=== PATIENT | female | born 1940 | race Caucasian/White ===

== ENCOUNTER 2017-08-01 23:18 | Emergency (ER) | payer MEDICARE, OTHER ==
[2017-08-01] MEDS ORDERED: hydrALAZINE 20 MG/ML VIAL ONE (23:30)
--- NOTE | 2017-09-17 12:41 | EKG ---
Test Reason : HYPERTENSION Blood Pressure : / mmHG Vent. Rate : 052 BPM Atrial Rate : 052 BPM P-R Int : 168 ms QRS Dur : 068 ms QT Int : 426 ms P-R-T Axes : 058 045 053 degrees QTc Int : 396 ms Sinus bradycardia Nonspecific T wave abnormality Nospecific ST-T segment abnormalities Abnormal ECG Confirmed by OSMAR HARRIS ([id number]), electronic news gathering editor MARÍA ELENA PONCE ([id number]) on 09/17/2017 12:41:08 PM Referred By: ASHLEY HARRIS Confirmed By:OSMAR HARRIS
== END 2017-08-02 02:25 | disposition home or self-care (01) ==
LOC: ERS 23:18
DX: I11.0 Hypertensive heart disease with heart failure (principal); I50.9 Heart failure, unspecified; E78.5 Hyperlipidemia, unspecified; E03.9 Hypothyroidism, unspecified
CPT/HCPCS: 93005; 96374; J0360

== ENCOUNTER 2018-03-04 12:48 | Inpatient (IN) | payer MEDICARE, OTHER ==
[2018-03-04] MEDS ORDERED: Atropine Sulfate 1 mg/10 ml Syringe ONE (13:18)
[2018-03-04 13:28] LABS: #Lymphocytes 1.2 thou/uL (1.20-3.40); #Monocytes 0.1 thou/uL (0.11-0.59); #Neutrophils 2.8 thou/uL (1.40-6.50); %Basophils 0.2 % (0.0-1.0); %Eosinophils 0.6 % (0.0-10.0); %Lymphocytes 28.4 % (21.0-51.0); %Monocytes 3.4 % (0.0-10.0); %Neutrophils 67.5 % (42.0-75.0); Mean Corpuscular Volume 93.7 fl (81.0-99.0); Mean Platelet Volume 7.9 fL (7.4-10.4); Platelet Count 128 thou/uL (130-400); RBC Distribution Width 14.6 % (11.5-14.5); Red Blood Cell (RBC) Count 3.33 mill/uL (4.20-5.40); White Blood Cell (WBC) Count 4.2 thou/uL (4.8-10.8)
[2018-03-04 13:33] LABS: INR-International Normal Ratio 1.5; PTT 29.9 SEC (22.9-36.1); Prothrombin Time 18.1 SEC (12.0-14.7)
[2018-03-04 13:46] LABS: ALT (SGPT) 8 U/L (8-55); AST (SGOT) 17 U/L (5-34); Albumin 3.1 g/dL (3.4-4.8); Alkaline Phosphatase 54 U/L (40-150); Anion Gap 15 mmol/L (10-20); BUN (Urea Nitrogen) 11 mg/dL (9.8-20.1); Bilirubin, Total Less than 0.2 mg/dL (0.2-1.2); Calc. Creatinine Clearance 0 mL/min (70-130); Calcium 7.6 mg/dL (7.8-10.44); Carbon Dioxide 18 mmol/L (23-31); Chloride 113 mmol/L (98-107); Estimated GFR-MDRD 49; Globulin 2.2 g/dL (2.4-3.5); Glucose 95 mg/dL (83-110); Potassium 3.8 mmol/L (3.5-5.1); Protein, Total 5.3 g/dL (6.0-8.3); Sodium 142 mmol/L (136-145)
[2018-03-04 13:51] LABS: Troponin I 0.013 ng/mL (< 0.028)
--- NOTE | 2018-03-04 14:20 | RAD ---
CHEST 1 VIEW: Date: 03/04/18 HISTORY: Syncopal episode. COMPARISON: 08/01/17. FINDINGS: Heart size is within normal limits. Postop sternotomy changes are seen. The lungs are clear of infilt rate. IMPRESSION: No active intrathoracic disease. POS: [facility]
[2018-03-04] MEDS ORDERED: Ondansetron HCl/PF 4 MG/2 ML Vial IVP PRN (17:10)
[2018-03-04] MEDS ORDERED: Ondansetron ODT 4 MG TAB PO PRN (17:10)
[2018-03-04] MEDS ORDERED: Acetaminophen 650 MG Suppository PR PRN (17:10)
[2018-03-04] MEDS ORDERED: Acetaminophen 500 MG TAB PO PRN (17:10)
[2018-03-04] MEDS ORDERED: Lorazepam 2 MG/ML VIAL SLOW IVP SCH (17:15)
--- NOTE | 2018-03-04 18:09 | HP ---
DATE OF ADMISSION: 03/04/2018 PRIMARY CARE PHYSICIAN: Dr. Keo Alston. CHIEF COMPLAINT: Altered mental status and fall. HISTORY OF PRESENT ILLNESS: This is a 77-year-old female who presents to [facility] Emergency Department accompanied by her son and [id number] after the patient wa s apparently discovered in her home on the floor. The patient was apparently discovered by her son elisha oscar next door, son after checking on his mother. Patient apparently was on the floor for an und isclosed amount of time at which point EMS personnel were called for assistance. The patient was rep ortedly with hypotension by EMS personnel with initial blood pressure 70/35. The patient was adminis tered 2 liters of normal saline and was also noted bradycardic with heart rates in the 40s. The son reports patient has had several falls in the past and has a rolling walker, which she intermittently uses. The son also reports questionable noncompliance with her chronic medication regimen and is uns ure if she is taking her medications in the correct doses and intervals. The son also reports some d iscord with his daughter who apparently lives with the patient and was recently removed from the home per the son's report. The son reports patient has never acted to this degree of confusion and comba tiveness. No specific history was reported of recent illness, sick contacts, exposure, travel histor y or a witnessed fall. The family had reported some twitching-like activity in the face and extremit ies after they checked on her at her home. In the emergency room, patient underwent general evaluati on with noted vital signs showing bradycardia and hypotension. The patient received 2 mg of atropine IV push with some improvement in overall heart rate to the 60s. Patient's blood pressure increased into the 90s and low 100s. The patient was noted afebrile and transferred to the observation unit. After transferred to the observation unit, patient became increasingly combative, confused, hallucina ting and oriented only to her name. PAST MEDICAL HISTORY: 1. Coronary artery disease. 2. Hypertension. 3. History of falls. 4. Macular degeneration. 5. History of left-sided breast cancer. 6. Hypothyroidism. 7. Hyperlipidemia. PAST SURGICAL HISTORY: 1. Status post left breast tumor resection. 2. Status post appendectomy. 3. Status post hysterectomy. 4. Status post coronary artery bypass grafting x3 vessels in 1997. CURRENT MEDICATIONS: Accurate list is being obtained and previously noted, 1. Crestor 10 mg daily. 2. Levothyroxine 125 mcg daily. 3. Cardura 2 mg p.o. daily. 4. Adalat 30 mg p.o. b.i.d. 5. Atorvastatin 20 mg p.o. daily. 6. Lasix 40 mg daily. 7. Lisinopril 40 mg p.o. daily. 8. Metoprolol tartrate 25 mg p.o. b.i.d. 9. Celexa 20 mg p.o. daily. ALLERGIES: PENICILLIN. FAMILY HISTORY: Positive for hypertension in maternal grandmother and grandfather. SOCIAL HISTORY: Patient is previously residing with her granddaughter in the [facility]. No curr ent alcohol, tobacco or illicit drug use. Remote tobacco and alcohol use, none currently. Ambulates with and without a rolling walker. History of falls. since 2005. REVIEW OF SYSTEMS: The following complete review of systems was negative, unless otherwise mentioned in the HPI or below: Constitutional: Weight loss or gain, ability to conduct usual activities. Skin: Rash, itching. Eyes: Double vision, pain. ENT/Mouth: Nose bleeding, neck stiffness, pain, tenderness. Cardiovascular: Palpitations, dyspnea on exertion, orthopnea. Respiratory: Shortness of breath, wheezing, cough, hemoptysis, fever or night sweats. Gastrointestinal: Poor appetite, abdominal pain, heartburn, nausea, vomiting, constipation, or diarr hea. Genitourinary: Urgency, frequency, dysuria, nocturia. Musculoskeletal: Pain, swelling. Neurologic/Psychiatric: Anxiety, depression. Allergy/Immunologic: Skin rash, bleeding tendency. Otherwise unable to determine due to patient's altered mentation. PHYSICAL EXAMINATION: VITAL SIGNS: On admission in the emergency room showed blood pressure 84/72, pulse 48, respiratory r ate 18, temperature 97.6 degrees Fahrenheit, and O2 saturation 94% on room air. GENERAL APPEARANCE: Alert and oriented to name. Confused, mumbling words with active hallucinations . HEENT: Pupils are equal. Positive nystagmus. Nares patent. OP is clear. Oral mucosa dry appearin g. NECK: Supple, no JVD noted. CHEST: Lungs are clear to auscultation bilaterally. CARDIOVASCULAR: S1 and S2 without noted murmur, rub or gallop. Heart sounds are distant. ABDOMEN: Obese, soft, no palpable mass. No rebound or guarding. EXTREMITIES: No clubbing, cyanosis or asymmetric edema appreciated. NEUROLOGIC: Alert and oriented time x1 to person. Positive hallucinations. Randomly moving extremi ties. Not observed ambulatory. Positive nystagmus. PERTINENT LABORATORY DATA AND IMAGING DATA: Sodium 142, potassium 3.8, chloride 113, CO2 of 18, BUN 11, creatinine 1.09, estimated GFR 49, glucose 95. LFTs within normal limits. Troponin I negative x 1. BNP 30. CBC showed white blood cell count 4.2, hemoglobin 10, hematocrit 31, platelet count 128 with 68% neutrophils. PT 18.1, INR 0.5, PTT 29.9. Portable chest x-ray dated 03/04/2018 showed no a cute cardiopulmonary process. EKG dated 03/04/2018 by my interpretation shows sinus bradycardia, hea rt rates in the 40s. Attenuated R waves in the precordial leads. Normal axis. No acute ST-T wave c hanges noted. ASSESSMENT AND PLAN: 1. Acute metabolic encephalopathy. The patient will be admitted to the telemetry unit. Exact etiol ogy unclear, currently. We will obtain CT of the brain without contrast to rule out acute cerebrovas cular accident. Check TSH, magnesium, and ammonia level. Check prolactin level. Continue intraveno us normal saline at 100 mL per hour. Serial neurologic assessment. Concern for atropine affect as p atient received 2 mg in the emergency room. 2. Sinus bradycardia. Suspect iatrogenic. Hold AV taniya blocking agents as well as beta blockers a nd calcium channel blockers. Continue telemetry monitoring. Check 2D transthoracic echocardiogram f or ejection fraction and wall motion abnormality. Check magnesium and TSH level. 3. Hypotension. Suspect secondarily to iatrogenic influence in conjunction with dehydration. We wi ll continue intravenous normal saline at 100 mL per hour. Avoid all antihypertensive medications. S erial blood pressure monitoring. 4. Status post fall. Obtain PT evaluation for functional assessment. The patient may benefit from home health with physical therapy. General fall precautions. 5. Normocytic anemia. Continue serial CBC. No current evidence to suggest acute blood loss. 6. Prophylaxis. Sequential compression devices while in bed. Pepcid 20 mg IV q.12 hours. PT evalu ation for functional assessment. General fall risk precautions. 7. Code status is FULL. Surrogate medical decision maker is patient's son.
[2018-03-04] MEDS: Sodium Chloride 0.9% 1,000 ML IV SCH (18:23)
[2018-03-04] MEDS ORDERED: Aspirin 300 MG Suppository PR SCH (18:45)
--- NOTE | 2018-03-04 19:59 | CT ---
HEAD CT WITHOUT CONTRAST: 03/04/18 COMPARISON: 08/01/17 HISTORY: Altered mental status, fall. TECHNIQUE: Serial axial CT imaging a t 5 mm intervals from vertex through skull base without contrast. FINDINGS: Imaged paranasal sinuses/mastoid air cells well aerated. No displaced calvarial fracture. There is mild diffuse cerebral volume loss. There is periventricular hypodensity. No intracranial hem orrhage, midline shift or mass effect. IMPRESSION: Evidence of small vessel disease. No evidence for intracranial hemorrhage or displaced calvarial frac ture. POS: [facility]
[2018-03-04] MEDS: Famotidine/PF 20 mg/2ml Vial SLOW IVP SCH (22:49)
[2018-03-05] MEDS ORDERED: Ziprasidone 20 MG VIAL IM SCH ×3 (01:00→18:00)
[2018-03-05] MEDS ORDERED: Sterile Water 10 ML VIAL FS SCH ×2 (01:00→04:00)
[2018-03-05 05:26] LABS: Band 5 % (5-11); Eosinophils 1 % (0-10); Hemoglobin 10.4 g/dL (12.0-16.0); Lymphocytes 39 % (21-51); MDiff Complete? YES; Mean Corpuscular HGB CONC 33.2 g/dL (32.0-36.0); Mean Corpuscular Hemoglobin 30.1 pg (27.0-31.0); Mean Corpuscular Volume 90.6 fl (81.0-99.0); Mean Platelet Volume 7.7 fL (7.4-10.4); Monocytes 4 % (0-10); Neutrophil 51 % (42-75); PLT Morphology Comment Appears Adequate; Platelet Count 146 thou/uL (130-400); RBC Distribution Width 14.4 % (11.5-14.5); Red Blood Cell (RBC) Count 3.46 mill/uL (4.20-5.40); White Blood Cell (WBC) Count 4.3 thou/uL (4.8-10.8)
[2018-03-05 06:00] LABS: ALT (SGPT) 8 U/L (8-55); AST (SGOT) 18 U/L (5-34); Albumin 3.3 g/dL (3.4-4.8); Alkaline Phosphatase 53 U/L (40-150); Anion Gap 14 mmol/L (10-20); BUN (Urea Nitrogen) 11 mg/dL (9.8-20.1); Bilirubin, Total 0.2 mg/dL (0.2-1.2); Calc. Creatinine Clearance 56 mL/min (70-130); Calcium 8.4 mg/dL (7.8-10.44); Carbon Dioxide 20 mmol/L (23-31); Chloride 112 mmol/L (98-107); Estimated GFR-MDRD 59; Globulin 2.2 g/dL (2.4-3.5); Glucose 72 mg/dL (83-110); Potassium 3.6 mmol/L (3.5-5.1); Protein, Total 5.5 g/dL (6.0-8.3); Sodium 142 mmol/L (136-145)
[2018-03-05] MEDS: Sodium Chloride 0.9% 1,000 ML IV SCH (07:24)
[2018-03-05] MEDS ORDERED: Prevnar 13-Val Conj/PF 0.5 ML SYRINGE IM ONE (09:00)
[2018-03-05] MEDS ORDERED: Dextrose 5% in Water 1,000 ML IV PRN (09:25)
[2018-03-05] MEDS ORDERED: Dextrose 50% Abboject 50 ML SYRINGE SLOW IVP PRN (09:25)
--- NOTE | 2018-03-05 09:25 | PDOC.PN ---
- Subjective Encounter Start Date: 03/05/18 Encounter Start Time: 10:15 Subjective: pt up in bed very confused. family at bedside - Objective Resuscitation Status: Resuscitation Status FULL:Full Resuscitation Vital Signs & Weight: Vital Signs (12 hours) Pulse Resp BP Pulse Ox 03/05/18 07:53 48 L 19 128/60 92 L I&O: 03/04/18 03/05/18 03/06/18 06:59 06:59 06:59 Intake Total 0 Balance 0 Result Diagrams: 03/05/18 04:54 03/05/18 04:54 Phys Exam - Physical Examination HEENT: PERRLA, moist MMs, sclera anicteric, TM's clear, oral pharynx no lesions , 2+ tonsils Neck: no nodes, no JVD, supple, full ROM Respiratory: no wheezing, no rales, no rhonchi, wheezing present, clear to auscultation bilateral Cardiovascular: RRR, no significant murmur, no rub, gallop, irregular Neurological: moves all 4 limbs pt very confused, follows commands Deviation from normal: very aggressive Skin: no rash, normal turgor, cap refill <2 seconds Dx/Plan (1) Acute metabolic encephalopathy Code(s): G93.41 - METABOLIC ENCEPHALOPATHY Status: Acute (2) Aggressive behavior Code(s): R46.89 - OTHER SYMPTOMS AND SIGNS INVOLVING APPEARANCE AND BEHAVIOR Status: Acute (3) Acquired hypothyroidism Code(s): E03.9 - HYPOTHYROIDISM, UNSPECIFIED Status: Acute - Plan * . Family at bedside states that pt was fine on sat but had a very stressful event on Tuesday and was very hysterically crying. pt has no hx of psy. ct head negative. no fever or neck pain. TSH was high most likely pt is not taking her meds. This could cause bradycardia. echo ordered. According to pt's family she has not slept much for the past 2 days. UA and cxr negative. Will get MHR and get neuro to see pt. I feel this is a underlying psy issue. She follows commands but has a very strange behaviour. will also get eeg. Review of Systems - Review of Systems Other: unable to do. pt not cooperative - Medications/Allergies Allergies/Adverse Reactions: Allergies Allergy/AdvReac Type Severity Reaction Status Date / Time Penicillins Allergy Severe Hives Verified 03/04/18 17:39 Medications: Current Medications Acetaminophen (Tylenol) 650 mg [place] Q4H PRN PRN Reason: Headache/Fever or Mild Pain Acetaminophen (Tylenol) 1,000 mg PO Q6H PRN PRN Reason: Headache/Fever or Mild Pain Aspirin (Aspirin) 300 mg NV DAILY [facility] Last Admin: 03/05/18 10:06 Dose: Not Given Atorvastatin Calcium (Lipitor) 20 mg PO DAILY [facility] Dextrose/Water (Dextrose 50%) 25 gm SLOW IVP PRN PRN PRN Reason: Hypoglycemia Famotidine (Pepcid) 20 mg SLOW IVP Q12HR [facility] Last Admin: 03/05/18 10:06 Dose: Not Given Glucagon (Glucagon) 1 mg IM PRN PRN PRN Reason: Hypoglycemia Dextrose/Water (D5w) 1,000 mls @ 0 mls/hr IV .Q0M PRN; As Directed PRN Reason: Hypoglycemia Dextrose/Sodium Chloride (D5 0.9% Ns) 1,000 mls @ 75 mls/hr IV .[id number] [facility] Last Admin: 03/05/18 09:59 Dose: 1,000 mls Levothyroxine Sodium (Synthroid) 125 mcg PO 0600 [facility] Ondansetron HCl (Zofran Odt) 4 mg PO Q6H PRN PRN Reason: Nausea/Vomiting Ondansetron HCl (Zofran) 4 mg IVP Q6H PRN PRN Reason: Nausea/Vomiting Sodium Chloride (Flush - Normal Saline) 10 ml IVF Q12HR [facility] Last Admin: 03/05/18 10:00 Dose: 10 ml Sodium Chloride (Flush - Normal Saline) 10 ml IVF PRN PRN PRN Reason: Saline Flush Ziprasidone (Geodon) 5 mg IM Q6H PRN PRN Reason: Agitation Stop: 03/06/18 07:00
[2018-03-05] MEDS: Dextrose 5 % And 0.9 % NaCl 1,000 ML IV SCH ×2 (09:59→21:03)
[2018-03-05] MEDS: Famotidine/PF 20 mg/2ml Vial SLOW IVP SCH ×2 (10:06→21:04)
[2018-03-05] MEDS: Aspirin 300 MG Suppository PR SCH (10:06)
[2018-03-05] MEDS ORDERED: Haloperidol Lactate 5 MG/ML VIAL IM SCH (11:15)
[2018-03-05 12:31] LABS: CKMB 1.9 ng/mL (0-6.6); Troponin I Less than 0.010 ng/mL (< 0.028)
[2018-03-05 13:10] LABS: Bilirubin Negative (Negative); Blood, Urine Negative (Negative); Clarity CLEAR (Clear); Glucose, Urine (Dipstick) Negative (Negative); Leukocyte Negative (Negative); Nitrite Negative (Negative); Protein, Urine (Dipstick) Negative (Neg-Trace); Specific Gravity, Urine 1.014 (1.002-1.036); Urobilinogen 0.2 mg/dL (0.2-1.0); pH, Urine 5.5 (5.0-9.0)
[2018-03-05 13:12] LABS: Bacteria/HPF None Seen HPF (None Seen); Hyaline Casts/LPF 4-6 HYALINE CAST LPF (0-3 Hyaline); Pathc Cast-AUWi Flag 1.16 (0-2.49); Squamous Epithelial 0-3 HPF (0-3); WBC/HPF 0-3 HPF (0-3)
[2018-03-05 13:22] LABS: Amphetamine Not Detected (NotDetected); Barbiturates Screen Not Detected (NotDetected); Benzodiazepine Screen Not Detected (NotDetected); Cocaine Metabolite Screen Not Detected (NotDetected); Medtox Control Line Valid? VALID (VALID); Medtox Reader # READER 4; Methadone Not Detected (NotDetected); Methamphetamine Not Detected (NotDetected); Opiate Screen Not Detected (NotDetected); Oxycodone Screen Not Detected (NotDetected); Phencyclidine (PCP) Not Detected (NotDetected); THC/Cannabinoid Screen Not Detected (NotDetected); Tricyclic Screen Not Detected (NotDetected)
[2018-03-05 13:31] LABS: RBC/HPF 0-3 HPF (0-3); Yeast-All Forms None Seen HPF (None Seen)
[2018-03-05] MEDS ORDERED: Ziprasidone 20 MG VIAL IM PRN (15:11)
--- NOTE | 2018-03-06 01:28 | CON ---
DATE OF CONSULTATION: 03/05/2018 HISTORY OF PRESENT ILLNESS: Evette Marquez is a 77-year-old, white female, who at the present time, cannot give an adequate history. She apparently was discovered yesterday on the floor of her home. It is unclear how long she had been down. Blood pressure initially was 70/35. She was given 2 liters of normal saline, noted to be bradycardic with heart rates in the 40s. Apparently , she has never been this confused. There was no witnessed syncope. She did receive 2 mg of atropine IV with heart rate increasing to the 60s. At the present time, she is in 2-point restraints, very confused, hallucinating and having discussions and conversations with people that are not there. PAST MEDICAL HISTORY: Hypertension, history of falls, hypothyroidism, hyperlipidemia, history of breast cancer. OPERATIONS: Left breast tumor resection, appendectomy, hysterectomy, CABG x3 in 1997. MEDICATIONS: Crestor 10 mg daily, levothyroxine 125 mcg daily, Adalat 30 mg b.i.d., Cardura 2 mg daily, atorvastatin 20 mg daily, Lasix 40 daily, lisinopril 40 daily, metoprolol 25 mg b.i.d., Celexa 20 daily. ALLERGIES: PENICILLIN. SOCIAL HISTORY: She smoked in the past, but not currently. She does not drink. FAMILY HISTORY: Negative for coronary artery disease. REVIEW OF SYSTEMS: Unobtainable due to the patient's current mental status. PHYSICAL EXAMINATION: VITAL SIGNS: Blood pressure 166/74, pulse of 45. HEENT: PERRL. NECK: Supple. LUNGS: Chest is clear. CARDIAC: S1, S2 normal, without any S3, S4 or murmurs. ABDOMEN: Normal bowel sounds, without tenderness. EXTREMITIES: Revealed no edema. NEUROLOGICAL: Patient does not follow commands, very confused and visually hallucinating. SKIN: Warm and dry. LABORATORY: EKG on admission reveals marked sinus bradycardia with rate of 43 per minute with nonspecific T-wave changes. She does have a rhythm strip in the chart with a heart rate of 110 per minute. Hemoglobin 10.4, hematocrit 31.4 , white count 4300. INR of 1.5. Sodium 142, potassium 3.6, chloride 112, carbon dioxide 20, BUN 11, creatinine 0.92. Troponin I is normal. Urine drug screen is unremarkable. IMPRESSION: 1. Metabolic encephalopathy, unclear etiology. 2. Sinus bradycardia. She is on metoprolol 25 mg b.i.d., and this has been discontinued. She does have a heart rate up to 110 at times. This certainly could be the reason for her falls. Echocardiogram has been performed; however, due to computer malfunction, it cannot be reviewed. 3. Hypotension, improved with IV fluids. PLAN: Patient currently is restrained. Echocardiogram will be reviewed. We will continue to reassess her heart rate off the metoprolol. She certainly may need a pacemaker placement. However, with her current mental status, placement of a pacemaker would be just about impossible. We will continue to follow the patient with you. KALYN
--- NOTE | 2018-03-06 01:30 | PDOC.EVN ---
Event Note - Event Note Event Note: Notified that the patient had 4 two second pauses over a one minute time frame. Patient has bradycardia noted. Holding all chronotropes. Patient was sleeping and asymptomatic. Will continue to monitor and consult cardiology. Still hypothyroid in spite of meds. May need further adjustment.
[2018-03-06] MEDS: Levothyroxine Sodium 125 MCG TAB PO SCH (05:21)
[2018-03-06] MEDS: Dextrose 5 % And 0.9 % NaCl 1,000 ML IV SCH (09:11)
[2018-03-06] MEDS: Aspirin 300 MG Suppository PR SCH (09:11)
[2018-03-06] MEDS: Famotidine/PF 20 mg/2ml Vial SLOW IVP SCH (09:11)
[2018-03-06] MEDS: Atorvastatin Calcium 20 MG TAB PO SCH (09:11)
--- NOTE | 2018-03-06 18:03 | PDOC.PN ---
- Subjective Encounter Start Date: 03/06/18 Encounter Start Time: 10:00 Subjective: pt up in bed more calm - Objective Resuscitation Status: Resuscitation Status FULL:Full Resuscitation Vital Signs & Weight: Vital Signs (12 hours) Temp Pulse Resp BP Pulse Ox 03/06/18 15:47 98.3 F 52 L 16 189/85 H 96 03/06/18 11:21 97.9 F 53 L 16 181/80 H 97 03/06/18 08:46 16 191/82 H 58 L 03/06/18 08:00 97 F L 55 L 16 93 L 03/06/18 07:49 97 F L 55 L 16 199/83 H 93 L Weight Admit Weight 149 lb 6.4 oz Weight 140 lb 11.2 oz I&O: 03/05/18 03/06/18 03/07/18 06:59 06:59 06:59 Intake Total 0 565 Output Total 600 Balance 0 -35 Result Diagrams: 03/05/18 04:54 03/05/18 04:54 Additional Labs: Accuchecks 03/06/18 03/06/18 03/06/18 17:05 05:38 01:54 POC Glucose 68 L 85 116 H 03/05/18 03/05/18 22:28 20:42 POC Glucose 96 79 Phys Exam - Physical Examination HEENT: PERRLA, moist MMs, sclera anicteric, TM's clear, oral pharynx no lesions , 2+ tonsils Neck: no nodes, no JVD, supple, full ROM Respiratory: no wheezing, no rales, no rhonchi, wheezing present, clear to auscultation bilateral Cardiovascular: RRR, no significant murmur, no rub, gallop, irregular Gastrointestinal: soft, non-tender, no distention, positive bowel sounds Musculoskeletal: no edema, pulses present, edema present pt more awake and oriented to self Dx/Plan (1) Acute metabolic encephalopathy Code(s): G93.41 - METABOLIC ENCEPHALOPATHY Status: Acute (2) Aggressive behavior Code(s): R46.89 - OTHER SYMPTOMS AND SIGNS INVOLVING APPEARANCE AND BEHAVIOR Status: Acute (3) Acquired hypothyroidism Code(s): E03.9 - HYPOTHYROIDISM, UNSPECIFIED Status: Acute (4) Bradycardia Code(s): R00.1 - BRADYCARDIA, UNSPECIFIED Status: Acute - Plan * pt more calm today. she had a pause last night of 4.0 sec. cardiology has been consulted. I also consulted neurology. I believe her aggressive behaviour was due to stressful event of her family. she is more pleasant today. Her bb is on hold. I did not adjust her synthyroid since i am not sure if she takes it at home. echo indicated ef of 55-60% Review of Systems - Review of Systems ENT: negative: Ear Pain, Ear Discharge, Nose Pain, Nose Discharge, Nose Congestion, Mouth Pain, Mouth Swelling, Throat Pain, Throat Swelling, Other Respiratory: negative: Cough, Dry, Shortness of Breath, Hemoptysis, SOB with Excertion, Pleuritic Pain, Sputum, Wheezing Cardiovascular: negative: chest pain, palpitations, orthopnea, paroxysmal nocturnal dyspnea, edema, light headedness, other Gastrointestinal: negative: Nausea, Vomiting, Abdominal Pain, Diarrhea, Constipation, Melena, Hematochezia, Other - Medications/Allergies Allergies/Adverse Reactions: Allergies Allergy/AdvReac Type Severity Reaction Status Date / Time Penicillins Allergy Severe Hives Verified 03/04/18 17:39 Medications: Current Medications Acetaminophen (Tylenol) 650 mg RI Q4H PRN PRN Reason: Headache/Fever or Mild Pain Acetaminophen (Tylenol) 1,000 mg PO Q6H PRN PRN Reason: Headache/Fever or Mild Pain Aspirin (Aspirin) 300 mg RI DAILY [facility] Last Admin: 03/06/18 09:11 Dose: Not Given Atorvastatin Calcium (Lipitor) 20 mg PO DAILY [facility] Last Admin: 03/06/18 09:11 Dose: Not Given Dextrose/Water (Dextrose 50%) 25 gm SLOW IVP PRN PRN PRN Reason: Hypoglycemia Famotidine (Pepcid) 20 mg PO BID [facility] Glucagon (Glucagon) 1 mg IM PRN PRN PRN Reason: Hypoglycemia Dextrose/Water (D5w) 1,000 mls @ 0 mls/hr IV .Q0M PRN; As Directed PRN Reason: Hypoglycemia Levothyroxine Sodium (Synthroid) 125 mcg PO 0600 [facility] Last Admin: 03/06/18 05:21 Dose: Not Given Lisinopril (Zestril) 20 mg PO BID [facility] Ondansetron HCl (Zofran Odt) 4 mg PO Q6H PRN PRN Reason: Nausea/Vomiting Ondansetron HCl (Zofran) 4 mg IVP Q6H PRN PRN Reason: Nausea/Vomiting Pneumococcal 13-Valent Conj Vacc (Prevnar) 0.5 ml IM .ONCE ONE Stop: 03/07/18 09:01 Sodium Chloride (Flush - Normal Saline) 10 ml IVF Q12HR [facility] Last Admin: 03/06/18 09:11 Dose: 10 ml Sodium Chloride (Flush - Normal Saline) 10 ml IVF PRN PRN PRN Reason: Saline Flush
[2018-03-06] MEDS: Famotidine 20 MG TAB PO SCH (21:14)
[2018-03-06] MEDS: Lisinopril 20 MG TAB PO SCH (21:14)
[2018-03-07] MEDS: Levothyroxine Sodium 125 MCG TAB PO SCH (06:06)
[2018-03-07] MEDS: Famotidine 20 MG TAB PO SCH ×2 (08:11→21:14)
[2018-03-07] MEDS: Lisinopril 20 MG TAB PO SCH ×2 (08:11→21:18)
[2018-03-07] MEDS: Aspirin 300 MG Suppository PR SCH (08:12)
[2018-03-07] MEDS: Atorvastatin Calcium 20 MG TAB PO SCH (08:12)
[2018-03-07] MEDS ORDERED: hydrALAZINE 20 MG/ML VIAL SLOW IVP PRN (08:24)
[2018-03-07] MEDS ORDERED: cloNIDine 0.1 MG TAB PO SCH (08:30)
[2018-03-07] MEDS ORDERED: Prevnar 13-Val Conj/PF 0.5 ML SYRINGE IM ONE (09:00)
--- NOTE | 2018-03-07 13:01 | PDOC.PN ---
- Subjective Encounter Start Date: 03/07/18 Encounter Start Time: 13:04 Patient seen and examined. Admitted for metabolic encephalopathy and aggressive behavior (resolved). Has been hypertensive in hospital and bradycardic. No acute events overnight. - Objective Resuscitation Status: Resuscitation Status FULL:Full Resuscitation MAR Reviewed: Yes Vital Signs & Weight: Vital Signs (12 hours) Temp Pulse Resp BP Pulse Ox 03/07/18 12:45 98.1 F 56 L 18 195/86 H 95 03/07/18 09:10 58 L 145/79 H 03/07/18 08:10 98.0 F 53 L 18 206/98 H 99 03/07/18 03:29 97.4 F L 51 L 15 179/87 H 96 Weight Admit Weight 149 lb 6.4 oz Weight 141 lb 6.4 oz I&O: 03/06/18 03/07/18 03/08/18 06:59 06:59 06:59 Intake Total 565 590 Output Total 600 900 Balance -35 -310 Result Diagrams: 03/05/18 04:54 03/05/18 04:54 Additional Labs: Accuchecks 03/07/18 03/07/18 03/06/18 12:38 06:24 20:46 POC Glucose 78 80 117 H 03/06/18 03/06/18 17:05 11:39 POC Glucose 68 L 85 Phys Exam - Physical Examination Constitutional: NAD HEENT: moist MMs, sclera anicteric, oral pharynx no lesions Neck: supple, full ROM Respiratory: no wheezing, no rales, no rhonchi, clear to auscultation bilateral Cardiovascular: RRR, no significant murmur, no rub Gastrointestinal: soft, non-tender, no distention, positive bowel sounds Musculoskeletal: no edema, pulses present Neurological: non-focal, moves all 4 limbs Psychiatric: normal affect, A&O x 3 Dx/Plan (1) Hypertensive urgency Code(s): I16.0 - HYPERTENSIVE URGENCY Status: Acute Comment: Asymptomatic. Pt on metoprolol, Procardia and lisinopril on outpatient basis. Metoprolol held 2/2 bradycardia. Will restart procardia and monitor response. (2) Acquired hypothyroidism Code(s): E03.9 - HYPOTHYROIDISM, UNSPECIFIED Status: Acute Comment: Continue levothyroxine- dose increased to 150 mcg daily. (3) Acute metabolic encephalopathy Code(s): G93.41 - METABOLIC ENCEPHALOPATHY Status: Resolved (4) Aggressive behavior Code(s): R46.89 - OTHER SYMPTOMS AND SIGNS INVOLVING APPEARANCE AND BEHAVIOR Status: Resolved (5) Bradycardia Code(s): R00.1 - BRADYCARDIA, UNSPECIFIED Status: Acute Comment: Asymptomatic. Pauses noted on tele. Cardiology consulted. metoprolol held. - Plan cont current plan of care, out of bed/ambulate, DVT proph w/SCDs Home antihypertensives regimen restarted. Monitor BP for today/ Likely discharge tomorrow. Review of Systems - Medications/Allergies Allergies/Adverse Reactions: Allergies Allergy/AdvReac Type Severity Reaction Status Date / Time Penicillins Allergy Severe Hives Verified 03/04/18 17:39 Medications: Current Medications Acetaminophen (Tylenol) 650 mg ME Q4H PRN PRN Reason: Headache/Fever or Mild Pain Acetaminophen (Tylenol) 1,000 mg PO Q6H PRN PRN Reason: Headache/Fever or Mild Pain Aspirin (Aspirin) 300 mg ME DAILY [facility] Last Admin: 03/07/18 08:12 Dose: Not Given Atorvastatin Calcium (Lipitor) 20 mg PO DAILY [facility] Last Admin: 03/07/18 08:12 Dose: 20 mg Dextrose/Water (Dextrose 50%) 25 gm SLOW IVP PRN PRN PRN Reason: Hypoglycemia Famotidine (Pepcid) 20 mg PO BID [facility] Last Admin: 03/07/18 08:11 Dose: 20 mg Glucagon (Glucagon) 1 mg IM PRN PRN PRN Reason: Hypoglycemia Hydralazine HCl (Apresoline) 10 mg SLOW IVP Q6H PRN PRN Reason: ELEVATED BP Last Admin: 03/07/18 12:51 Dose: 10 mg Dextrose/Water (D5w) 1,000 mls @ 0 mls/hr IV .Q0M PRN; As Directed PRN Reason: Hypoglycemia Levothyroxine Sodium (Synthroid) 150 mcg PO 0600 [facility] Lisinopril (Zestril) 20 mg PO BID [facility] Last Admin: 03/07/18 08:11 Dose: 20 mg Ondansetron HCl (Zofran Odt) 4 mg PO Q6H PRN PRN Reason: Nausea/Vomiting Ondansetron HCl (Zofran) 4 mg IVP Q6H PRN PRN Reason: Nausea/Vomiting Sodium Chloride (Flush - Normal Saline) 10 ml IVF Q12HR [facility] Last Admin: 03/07/18 08:14 Dose: 10 ml Sodium Chloride (Flush - Normal Saline) 10 ml IVF PRN PRN PRN Reason: Saline Flush
[2018-03-07] MEDS: NIFEdipine XL 30 MG TAB PO SCH (21:15)
[2018-03-08 05:17] LABS: Hemoglobin 11.3 g/dL (12.0-16.0); Mean Corpuscular Hemoglobin 29.9 pg (27.0-31.0); Mean Corpuscular Volume 90.7 fL (78.0-98.0); Mean Platelet Volume 8.3 fL (7.4-10.4); Platelet Count 161 thou/uL (130-400); RBC Distribution Width 14.3 % (11.5-14.5); Red Blood Cell (RBC) Count 3.78 mill/uL (4.20-5.40); White Blood Cell (WBC) Count 4.8 thou/uL (4.8-10.8)
[2018-03-08 05:38] LABS: Anion Gap 13 mmol/L (10-20); BUN (Urea Nitrogen) 10 mg/dL (9.8-20.1); Calc. Creatinine Clearance 58 mL/min (70-130); Calcium 8.7 mg/dL (7.8-10.44); Carbon Dioxide 22 mmol/L (23-31); Chloride 109 mmol/L (98-107); Estimated GFR-MDRD 67; Glucose 92 mg/dL (83-110); Potassium 3.5 mmol/L (3.5-5.1); Sodium 140 mmol/L (136-145)
[2018-03-08] MEDS: Levothyroxine 150 MCG TAB PO SCH (06:18)
[2018-03-08] MEDS ORDERED: Potassium Chloride 20 MEQ TAB PO SCH (08:15)
[2018-03-08] MEDS: Aspirin 300 MG Suppository PR SCH (09:00)
[2018-03-08] MEDS: Furosemide 40 MG TAB PO SCH (09:01)
[2018-03-08] MEDS: Atorvastatin Calcium 20 MG TAB PO SCH (09:01)
[2018-03-08] MEDS: Lisinopril 20 MG TAB PO SCH ×2 (09:01→19:55)
[2018-03-08] MEDS: NIFEdipine XL 30 MG TAB PO SCH ×2 (09:02→19:55)
[2018-03-08] MEDS: Famotidine 20 MG TAB PO SCH ×2 (09:02→19:55)
--- NOTE | 2018-03-08 11:51 | PDOC.PN ---
- Subjective Encounter Start Date: 03/08/18 Encounter Start Time: 11:53 Patient seen and examined. Admitted for metabolic encephalopathy and aggressive behavior (resolved). Brain CT showed evidence of small vessel disease. No acute events overnight but still requiring 1:1 sitter. - Objective Resuscitation Status: Resuscitation Status FULL:Full Resuscitation MAR Reviewed: Yes Vital Signs & Weight: Vital Signs (12 hours) Temp Pulse Resp BP BP Pulse Ox 03/08/18 07:20 97.8 F 67 16 176/84 H 97 03/08/18 04:00 98.2 F 55 L 18 143/67 H 99 03/08/18 00:00 179/78 H Weight Admit Weight 149 lb 6.4 oz Weight 141 lb 6.4 oz I&O: 03/07/18 03/08/18 03/09/18 06:59 06:59 06:59 Intake Total 590 1468 Output Total 900 1220 Balance -310 248 Result Diagrams: 03/08/18 04:26 03/08/18 04:26 Additional Labs: Accuchecks 03/07/18 03/07/18 03/07/18 20:03 14:32 14:20 POC Glucose 93 79 84 03/07/18 12:38 POC Glucose 78 Phys Exam - Physical Examination Constitutional: NAD HEENT: moist MMs, sclera anicteric Neck: supple, full ROM Respiratory: no wheezing, no rales, no rhonchi, clear to auscultation bilateral Cardiovascular: RRR, no significant murmur, no rub Gastrointestinal: soft, non-tender, no distention, positive bowel sounds Musculoskeletal: no edema, pulses present Neurological: non-focal Psychiatric: A&O x 3 Skin: no rash, normal turgor Dx/Plan (1) Hypertensive urgency Code(s): I16.0 - HYPERTENSIVE URGENCY Status: Acute Comment: Improving. Pt on metoprolol, Procardia and lisinopril on outpatient basis. Metoprolol held 2/ 2 bradycardia. Continue lisinopril and Procardia. (2) Acquired hypothyroidism Code(s): E03.9 - HYPOTHYROIDISM, UNSPECIFIED Status: Acute Comment: Stable. Continue levothyroxine- dose increased to 150 mcg daily. (3) Bradycardia Code(s): R00.1 - BRADYCARDIA, UNSPECIFIED Status: Acute Comment: Asymptomatic. Pauses noted on tele. Metoprolol held. (4) Aggressive behavior Code(s): R46.89 - OTHER SYMPTOMS AND SIGNS INVOLVING APPEARANCE AND BEHAVIOR Status: Resolved (5) Acute metabolic encephalopathy Code(s): G93.41 - METABOLIC ENCEPHALOPATHY Status: Resolved - Plan cont current plan of care, PT/OT, oncology social worker, out of bed/ambulate, DVT proph w/SCDs D/C 1:1 and monitor patient closely Likely discharge to rehab tomorrow if BP continues to improve. graphic manager on board. Review of Systems - Medications/Allergies Allergies/Adverse Reactions: Allergies Allergy/AdvReac Type Severity Reaction Status Date / Time Penicillins Allergy Severe Hives Verified 03/04/18 17:39 Medications: Current Medications Acetaminophen (Tylenol) 650 mg WV Q4H PRN PRN Reason: Headache/Fever or Mild Pain Acetaminophen (Tylenol) 1,000 mg PO Q6H PRN PRN Reason: Headache/Fever or Mild Pain Aspirin (Aspirin) 300 mg WV DAILY [facility] Last Admin: 03/08/18 09:00 Dose: Not Given Atorvastatin Calcium (Lipitor) 20 mg PO DAILY [facility] Last Admin: 03/08/18 09:01 Dose: 20 mg Dextrose/Water (Dextrose 50%) 25 gm SLOW IVP PRN PRN PRN Reason: Hypoglycemia Famotidine (Pepcid) 20 mg PO BID [facility] Last Admin: 03/08/18 09:02 Dose: Not Given Furosemide (Lasix) 40 mg PO DAILY [facility] Last Admin: 03/08/18 09:01 Dose: 40 mg Glucagon (Glucagon) 1 mg IM PRN PRN PRN Reason: Hypoglycemia Hydralazine HCl (Apresoline) 10 mg SLOW IVP Q6H PRN PRN Reason: ELEVATED BP Last Admin: 03/07/18 12:51 Dose: 10 mg Dextrose/Water (D5w) 1,000 mls @ 0 mls/hr IV .Q0M PRN; As Directed PRN Reason: Hypoglycemia Levothyroxine Sodium (Synthroid) 150 mcg PO 0600 [facility] Last Admin: 03/08/18 06:18 Dose: 150 mcg Lisinopril (Zestril) 20 mg PO BID [facility] Last Admin: 03/08/18 09:01 Dose: 20 mg Nifedipine (Procardia Xl) 30 mg PO BID [facility] Last Admin: 03/08/18 09:02 Dose: 30 mg Ondansetron HCl (Zofran Odt) 4 mg PO Q6H PRN PRN Reason: Nausea/Vomiting Ondansetron HCl (Zofran) 4 mg IVP Q6H PRN PRN Reason: Nausea/Vomiting Sodium Chloride (Flush - Normal Saline) 10 ml IVF Q12HR [facility] Last Admin: 03/08/18 09:02 Dose: 10 ml Sodium Chloride (Flush - Normal Saline) 10 ml IVF PRN PRN PRN Reason: Saline Flush
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
[2018-03-08 14:43] VITALS: BMI 25.8
[2018-03-09] MEDS: Levothyroxine 150 MCG TAB PO SCH (05:21)
[2018-03-09] MEDS: Atorvastatin Calcium 20 MG TAB PO SCH (08:47)
[2018-03-09] MEDS: Famotidine 20 MG TAB PO SCH (08:47)
[2018-03-09] MEDS: Furosemide 40 MG TAB PO SCH (08:47)
[2018-03-09] MEDS: NIFEdipine XL 30 MG TAB PO SCH (08:47)
[2018-03-09] MEDS: Lisinopril 20 MG TAB PO SCH (08:54)
--- NOTE | 2018-03-09 12:53 | DIS ---
DATE OF ADMISSION: 03/04/2018 DATE OF DISCHARGE: 03/09/2018 PRIMARY CARE PHYSICIAN: Keo Alston M.D. DISCHARGE DIAGNOSES: 1. Acute encephalopathy. 2. Bradycardia. 3. Physical deconditioning. 4. Hypothyroidism. CONSULTATIONS DURING THIS HOSPITALIZATION: Cardiology, Dr. Cuco Rey. Neurology, Dr. Jen kaur. CONDITION OF PATIENT ON THE DAY OF DISCHARGE: Stable. I assessed Ms. Marquez on the day of discharg e. She denies any chest pain or shortness of breath. Vital signs are stable. S1 and S2 are heard, regular. Lungs are clear to auscultation bilaterally. HOSPITAL COURSE: Ms. Marquez is a pleasant 77-year-old lady who was admitted to [facility] on 03/04/2018, for acute encephalopathy. She was also in sinus bradycardia. Beta bloc kers and calcium channel blockers were held. She was seen by Cardiology Service and Neurology Servic e. A 2D echocardiogram on 03/05/2018, showed left ventricular function was normal, estimated at 55%- 60%. She had mild mitral regurgitation and mild tricuspid regurgitation. In terms of neurologic workup, she had a CT of the head without contrast, which showed no abnormality . Her labs were unremarkable. Neurologist felt that the recent event may have been triggered by str ess and anxiety. EEG did not show any epileptiform discharges. No further neurologic workup was nee ded, according to Neurology Service. She improved clinically. She is being discharged to rehab because she became physically deconditione d during this hospitalization She was also found to be hypothyroid, with a TSH elevated at 13.43 and free T4 decreased at 0.59. He r Synthroid dose was increased from 125 mcg to 250 mcg daily. She will need her thyroid profile rech ecked in 6-8 weeks through her primary care provider's office. Many thanks for allowing me to participate in your patient's care. Please feel free to contact me wi th any questions or concerns. DISCHARGE DESTINATION: [facility]. TOTAL AMOUNT OF TIME SPENT COORDINATING THIS DISCHARGE: 33 minutes.
[2018-03-09 13:14] VITALS: BP 116/66; TEMP 98.1
== END 2018-03-09 15:21 | disposition short-term general hospital (02) | DRG 72 ==
LOC: ERS 12:48 → 2SW 15:09 → OBSVTOIN 17:03 → 2NO 19:50
PROVIDERS: ADMIT Family Medicine; ATTEND Family Medicine
DX: G93.41 Metabolic encephalopathy (principal); R00.1 Bradycardia, unspecified; E03.9 Hypothyroidism, unspecified; I08.1 Rheumatic disorders of both mitral and tricuspid valves; I95.9 Hypotension, unspecified; I25.10 Atherosclerotic heart disease of native coronary artery without angina pectoris; I10 Essential (primary) hypertension; H35.30 Unspecified macular degeneration; E78.5 Hyperlipidemia, unspecified; E86.0 Dehydration; I16.0 Hypertensive urgency; D64.9 Anemia, unspecified; R46.89 Other symptoms and signs involving appearance and behavior; Z95.1 Presence of aortocoronary bypass graft; Z91.81 History of falling; Z85.3 Personal history of malignant neoplasm of breast; Z87.891 Personal history of nicotine dependence; T44.7X5A Adverse effect of beta-adrenoreceptor antagonists, initial encounter; T46.1X5A Adverse effect of calcium-channel blockers, initial encounter; Y92.009 Unspecified place in unspecified non-institutional (private) residence as the place of occurrence of the external cause
CPT/HCPCS: 36415; 36416; 70450; 71045; 80048; 80053; 80306; 82140; 82553; 83735; 83880; 84146; 84439; 84443; 84484; 85007; 85025; 85027; 85610; 85730; 93005; 93306; 95816; 95819; 96374; A4216; G8978-GP-CK; G8979-GP-CI; J0360; J0461; J1630; J2060; J3486; S0028

== ENCOUNTER 2019-12-26 20:01 | Inpatient (IN) | payer MEDICARE, OTHER ==
--- NOTE | 2019-12-26 23:38 | HP ---
PRIMARY CARE PHYSICIAN: Dr. Yates. CHIEF COMPLAINT: Diarrhea and hypotension. HISTORY OF PRESENT ILLNESS: This is a 79-year-old white female with a history of progressive dementia over the last couple of years, who is not able to give any history. All history is taken from the ER doctor and the chart. The patient was brought to Dr. Yates's office today after son noted that she had diarrhea x3 and fever to 102 per her son who lives next door to her. He noticed that she had at least 4-5 watery stools that morning, uncertain if she had any before that she has significant dementia and denies any symptoms. She was brought to Dr. Yates's office and found to have systolic blood pressure in the 70s, and so was sent to the emergency room. There, she noted to have acute renal failure with creatinine 3, typically it is normal. She was given IV fluids there with improvement in her blood pressure. Otherwise, denied complaints in the emergency room. She was swabbed for COVID due to the history of fever and the diarrhea and then was transferred here. Her son was present in the emergency room initially; however, he left the ER before the decision was made to transfer and they were unable to get a hold of them for that. I have called his number as well as the patient's number, the ones on the chart are disconnected, so I am not able to contact the son to confirm any history with him or to talk about code status. PAST MEDICAL HISTORY: All history taken from the chart. 1. Hyperlipidemia. 2. Congestive heart failure. 3. Hypothyroidism. 4. Hypertension. 5. Previous left breast cancer. 6. Macular degeneration. 7. Dementia. 8. Coronary artery disease. PAST SURGICAL HISTORY: 1. Left breast tumor removal. 2. Appendectomy. 3. Hysterectomy. 4. Triple bypass in 1997. SOCIAL HISTORY: No current tobacco, alcohol, or illicit drug use. She did use to smoke, but quit more than 10 years ago. She lives by herself. Son lives next door to her. FAMILY HISTORY: No known family medical history. ALLERGIES: 1. DURAVENT CAUSES HIVES. 2. PENICILLIN. CURRENT MEDICATIONS: 1. Aspirin 81 mg daily. 2. Lisinopril 40 mg twice a day. 3. Citalopram 20 mg daily. 4. Doxazosin 1 mg daily. 5. Nexium 40 mg daily. 6. Hydrochlorothiazide 25 mg daily. 7. Levothyroxine 150 mcg daily. 8. Pentoxifylline 400 mg 3 times a day. 9. Rosuvastatin 10 mg daily. PHYSICAL EXAMINATION: VITAL SIGNS: Blood pressure 118/56, pulse 63, temperature 98.3, O2 saturation 100% on room air. GENERAL: This is a well-developed, well-nourished white female, in no acute distress. HEENT: Pupils are equal, round, and reactive to light. Oropharynx clear without lesions, erythema, or exudate. She does have some mildly dry mucous membranes. NECK: Supple. No lymphadenopathy. No thyroid nodules or enlargement. HEART: Regular rate and rhythm. No murmurs, rubs, or gallops. Occasionally runs are a little bradycardic. LUNGS: Clear to auscultation bilaterally. No wheezes, crackles, or rhonchi. ABDOMEN: Soft, nontender to palpation. Normoactive bowel sounds. No hepatosplenomegaly or other masses. EXTREMITIES: No clubbing, cyanosis, or edema. SKIN: No rashes or other lesions noted. NEUROLOGICAL: The patient moves all extremities equally. No facial droop. PSYCHIATRIC: The patient is alert. She is oriented to person and she knows that she is in the hospital, otherwise she cannot give any other history. She does not know what town she is and she does not know the year and she does not know why she is here. She is just asking to go home. She denies any diarrhea or fever. LABORATORY DATA: CBC within normal limits. Complete metabolic panel notable for carbon dioxide of 16, BUN of 41, creatinine of 3.11, the rest is normal. Her typical creatinine most recently was 0.77 two years ago, I do not have any more recent labs in that. Lactic acid was negative. Troponin was negative. TSH was low at 0.0105. Urinalysis showed trace ketones and small bilirubin, otherwise negative for infection. Chest x-ray, I did review the chest x-ray done in the emergency room along with the radiologist's report, it does show no acute cardiopulmonary process. No evidence of infiltrates, effusions, or edema. ASSESSMENT AND PLAN: 1. Sepsis with hypotension and reported fever to 102. Hypotension is now resolved with IV fluids administration in the outside emergency room. We will continue normal saline for now. Cultures I believe were drawn and cefepime and vancomycin were given there. I will continue the cefepime for now. I do not see any evidence of MRSA at this time. 2. Diarrhea with fever, likely gastrointestinal infection. There is a possibility of COVID given the current outbreak, presence of a previous positive in [place] and small percentage of cases that do present with GI symptoms initially. We will put her on contact precautions and await the COVID test to come back. The patient does not have any known personal COVID positive contacts. If the COVID test comes back negative, her isolation would be discontinued. 3. Acute renal failure secondary to #1. We will recheck in the morning after IV fluid administration. For now, we will decrease the cefepime to 1 g q.24 hours that can be increased back up if her creatinine improves. We will hold her diuretics and lisinopril for now. 4. Congestive heart failure, not currently in exacerbation. We will need to monitor her volume status closely and resume her home medications when she is at a neutral volume status and her renal failure resolves. 5. History of coronary artery disease with previous bypass. Continue statin and blood pressure medications as tolerated. We will continue aspirin. 6. Gastrointestinal prophylaxis. Continue the patient's PPI. 7. Deep venous thrombosis prophylaxis. We will put the patient on subcu heparin. 8. Hyperlipidemia. Resume the patient's statin. 9. Dementia. 10. Code status. Unable to confirm code status at this time due to unable to get a hold of the patient's medical power of corporate associate attorney, her son. We will have Case Management try to contact him tomorrow and track down a good number for him. Job ID: [id number]
[2019-12-26] MEDS ORDERED: Lactated Ringer's 1,000 ML IV SCH (23:45)
[2019-12-26] MEDS ORDERED: Guaifenesin DM 100-10/5 ML UDCUP PO PRN (23:56)
[2019-12-26] MEDS ORDERED: Acetaminophen 650 MG Suppository PR PRN (23:56)
[2019-12-26] MEDS ORDERED: Ondansetron ODT 4 MG TAB PO PRN (23:56)
[2019-12-26] MEDS ORDERED: Acetaminophen 325 MG TAB PO PRN (23:56)
[2019-12-26] MEDS ORDERED: Ondansetron PF 4 MG/2 ML Vial IVP PRN (23:56)
[2019-12-27] MEDS: Sodium Chloride 0.9% 1,000 ML IV SCH ×3 (00:57→15:43)
[2019-12-27 05:00] VITALS: BMI 21.9
[2019-12-27 06:32] LABS: #Eosinphils 0.1 thou/uL (0.0-0.7); #Lymphocytes 1.1 thou/uL (1.20-3.40); #Monocytes 0.2 thou/uL (0.11-0.59); #Neutrophils 2.4 thou/uL (1.40-6.50); %Eosinophils 1.4 % (0.0-10.0); %Monocytes 5.8 % (0.0-10.0); %Neutrophils 62.7 % (42.0-75.0); Mean Corpuscular HGB CONC 32.9 g/dL (32.0-36.0); Platelet Count 91 thou/uL (130-400); RBC Distribution Width 13.9 % (11.5-14.5); White Blood Cell (WBC) Count 3.8 thou/uL (4.8-10.8)
[2019-12-27 06:49] LABS: Anion Gap 10 mmol/L (10-20); BUN (Urea Nitrogen) 28 mg/dL (9.8-20.1); Calc. Creatinine Clearance 31 mL/min (70-130); Calcium 6.3 mg/dL (7.8-10.44); Carbon Dioxide 13 mmol/L (23-31); Chloride 121 mmol/L (98-107); Estimated GFR-MDRD 37; Sodium 141 mmol/L (136-145)
[2019-12-27 06:52] LABS: Glucose 55 mg/dL (83-110); Potassium 2.8 mmol/L (3.5-5.1)
[2019-12-27 07:08] LABS: Free T4 (Free Thyroxine) 0.46 ng/dL (0.70-1.48)
[2019-12-27] MEDS ORDERED: Potassium Chloride 20 MEQ TAB PO SCH (08:15)
[2019-12-27] MEDS: Doxazosin Mesylate 1 MG TAB PO SCH (08:17)
[2019-12-27] MEDS: Citalopram 20 MG TAB PO SCH (08:17)
[2019-12-27] MEDS: Aspirin Chewable 81 MG TAB PO SCH (08:17)
[2019-12-27] MEDS: Heparin 5,000 UNITS/ML VIAL SC SCH ×3 (09:00→20:25)
[2019-12-27] MEDS ORDERED: Magnesium Sulfate 3 GM in Sodium Chloride 0.9% 100 ML IVPB SCH (14:30)
[2019-12-27] MEDS ORDERED: Calcium Gluc 4.6 MEQ/10 ML (100 MG/ML) SLOW IVP SCH (14:45)
[2019-12-27] MEDS ORDERED: Calcium Gluconate 4.6 MEQ in Sodium Chloride 0.9% 100 ML IVPB SCH (15:45)
[2019-12-27] MEDS: Cefepime 1 GM in Sodium Chloride 0.9% 100 ML IVPB SCH (17:05)
--- NOTE | 2019-12-27 18:58 | PDOC.HOSPP ---
- Subjective Encounter Date: 12/27/19 Subjective: Says she feels better. Denies any further diarrhea. Says she is ready to go home. - Objective Vital Signs & Weight: Vital Signs (12 hours) Temp Pulse Resp BP Pulse Ox 12/27/19 15:54 97.8 F 52 L 16 128/69 96 12/27/19 12:42 98.0 F 49 L 18 132/65 99 12/27/19 08:00 98.3 F 56 L 18 128/64 99 Weight Weight 127 lb 12.8 oz I&O: 12/26/19 12/27/19 12/28/19 06:59 06:59 06:59 Intake Total 1800 Balance 1800 Result Diagrams: 12/27/19 06:08 12/27/19 06:08 Additional Labs: Accuchecks 12/27/19 08:33 POC Glucose 98 Hospitalist ROS - Medication Medications: Active Medications Generic Name Dose Route Start Last Admin Trade Name Freq PRN Reason Stop Dose Admin Aspirin 81 mg 12/27/19 09:00 12/27/19 08:17 Aspirin Chewable PO 81 mg DAILY JANES Administration Citalopram Hydrobromide 20 mg 12/27/19 09:00 12/27/19 08:17 Celexa PO 20 mg DAILY JANES Administration Doxazosin Mesylate 1 mg 12/27/19 09:00 12/27/19 08:17 Cardura PO 1 mg DAILY JANES Administration Heparin Sodium (Porcine) 5,000 units 12/27/19 09:00 12/27/19 15:38 Heparin SC Not Given TID JANES Sodium Chloride 1,000 mls @ 100 mls/hr 12/26/19 23:56 12/27/19 15:43 Normal Saline 0.9% IV 1,000 mls .Q10H JANES Administration Cefepime HCl 1 gm/ Sodium 100 mls @ 200 mls/hr 12/27/19 18:00 12/27/19 17:05 Chloride IVPB 100 mls Q24HR JANES Administration Pantoprazole Sodium 40 mg 12/27/19 09:00 12/27/19 08:17 Protonix PO 40 mg DAILY JANES Administration - Exam General Appearance: NAD, awake alert Heart: RRR, no murmur, no gallops, no rubs, normal peripheral pulses Respiratory: CTAB, no wheezes, no rales, no ronchi, normal chest expansion, no tachypnea, normal percussion Gastrointestinal: soft, non-tender, non-distended, normal bowel sounds, no palpable masses, no hepatomegaly, no splenomegaly, no bruit Extremities: no cyanosis, no clubbing, no edema Neurological: no focal deficits Musculoskeletal: normal tone Psychiatric: normal affect, not oriented Hosp A/P (1) Acute kidney failure Status: Acute (2) Diarrhea Code(s): R19.7 - DIARRHEA, UNSPECIFIED Status: Acute (3) Hypocalcemia Code(s): E83.51 - HYPOCALCEMIA Status: Acute (4) Hypomagnesemia Code(s): E83.42 - HYPOMAGNESEMIA Status: Acute (5) Acquired hypothyroidism Code(s): E03.9 - HYPOTHYROIDISM, UNSPECIFIED Status: Acute (6) Sepsis Code(s): A41.9 - SEPSIS, UNSPECIFIED ORGANISM Status: Acute (7) Hypotension Status: Acute (8) CAD (coronary artery disease) Code(s): I25.10 - ATHSCL HEART DISEASE OF [place] CORONARY ARTERY W/O ANG PCTRS Status: Acute (9) Dementia Code(s): F03.90 - UNSPECIFIED DEMENTIA WITHOUT BEHAVIORAL DISTURBANCE Status: Acute - Plan Sepsis/Diarrhea: Continue thyroid meds. Continue cefepime and monitor cultures. Feels better with hydration. JUAN M: Continue IVF. Monitor renal function. Secondary to sepsis. Hypomag, Hypocal: Replace Mg and Ca. Initially reported to have some CHF, but prior echo reviewed and appears to be normal.
[2019-12-27] MEDS: Rosuvastatin 10 MG TAB PO SCH (21:38)
[2019-12-28] MEDS: Sodium Chloride 0.9% 1,000 ML IV SCH ×2 (02:45→15:42)
[2019-12-28] MEDS: Levothyroxine 150 MCG TAB PO SCH (06:14)
[2019-12-28] MEDS: Citalopram 20 MG TAB PO SCH (07:53)
[2019-12-28] MEDS: Heparin 5,000 UNITS/ML VIAL SC SCH ×3 (07:53→20:26)
[2019-12-28] MEDS: Aspirin Chewable 81 MG TAB PO SCH (07:53)
[2019-12-28] MEDS: Doxazosin Mesylate 1 MG TAB PO SCH (07:53)
[2019-12-28 08:27] LABS: ALT (SGPT) 10 U/L (8-55); AST (SGOT) 19 U/L (5-34); Albumin 2.5 g/dL (3.4-4.8); Alkaline Phosphatase 61 U/L (40-110); Anion Gap 10 mmol/L (10-20); BUN (Urea Nitrogen) 22 mg/dL (9.8-20.1); Bilirubin, Total 0.2 mg/dL (0.2-1.2); Calc. Creatinine Clearance 40 mL/min (70-130); Calcium 7.6 mg/dL (7.8-10.44); Carbon Dioxide 15 mmol/L (23-31); Chloride 118 mmol/L (98-107); Estimated GFR-MDRD 50; Globulin 2.2 g/dL (2.4-3.5); Glucose 62 mg/dL (83-110); Protein, Total 4.7 g/dL (6.0-8.3); Sodium 138 mmol/L (136-145)
[2019-12-28 08:52] LABS: Hemoglobin 9.8 g/dL (12.0-16.0); Mean Corpuscular HGB CONC 32.6 g/dL (32.0-36.0); Mean Corpuscular Hemoglobin 29.6 pg (27.0-31.0); Mean Corpuscular Volume 90.8 fL (78.0-98.0); Mean Platelet Volume 8.6 fL (7.4-10.4); Platelet Count 108 thou/uL (130-400); RBC Distribution Width 13.9 % (11.5-14.5); Red Blood Cell (RBC) Count 3.31 mill/uL (4.20-5.40)
[2019-12-28 09:37] LABS: #Eosinphils 0.1 thou/uL (0.0-0.7); #Lymphocytes 1.4 thou/uL (1.20-3.40); #Monocytes 0.2 thou/uL (0.11-0.59); #Neutrophils 1.4 thou/uL (1.40-6.50); %Basophils 0.5 % (0.0-1.0); %Eosinophils 2.2 % (0.0-10.0); %Lymphocytes 44.5 % (21.0-51.0); %Monocytes 5.7 % (0.0-10.0); %Neutrophils 47.1 % (42.0-75.0); Band 4 % (5-11); Eosinophils 1 % (0-10); Lymphocytes 47 % (21-51); MDiff Complete? YES; Monocytes 3 % (0-10); Neutrophil 45 % (42-75); Platelet Morphology Comment Appears Decreased; Polychromasia SLIGHT = 2-3 cells (100X) (0-2/hpf)
--- NOTE | 2019-12-28 13:29 | PDOC.HOSPP ---
- Subjective Encounter Date: 12/28/19 Subjective: Doing ok. Denies problems. No diarrhea. - Objective Vital Signs & Weight: Vital Signs (12 hours) Temp Pulse Resp BP Pulse Ox 12/28/19 08:00 96 12/28/19 06:15 97.3 F L 45 L 16 145/71 H 94 L Weight Weight 127 lb 12.8 oz I&O: 12/27/19 12/28/19 12/29/19 06:59 06:59 06:59 Intake Total 3600 Balance 3600 Result Diagrams: 12/28/19 08:28 12/28/19 07:01 Hospitalist ROS - Medication Medications: Active Medications Generic Name Dose Route Start Last Admin Trade Name Freq PRN Reason Stop Dose Admin Aspirin 81 mg 12/27/19 09:00 12/28/19 07:53 Aspirin Chewable PO 81 mg DAILY JANES Administration Citalopram Hydrobromide 20 mg 12/27/19 09:00 12/28/19 07:53 Celexa PO 20 mg DAILY JANES Administration Doxazosin Mesylate 1 mg 12/27/19 09:00 12/28/19 07:53 Cardura PO 1 mg DAILY JANES Administration Heparin Sodium (Porcine) 5,000 units 12/27/19 09:00 12/28/19 11:09 Heparin SC Not Given TID JANES Sodium Chloride 1,000 mls @ 100 mls/hr 12/26/19 23:56 12/28/19 02:45 Normal Saline 0.9% IV 1,000 mls .Q10H JANES Administration Cefepime HCl 1 gm/ Sodium 100 mls @ 200 mls/hr 12/27/19 18:00 12/27/19 17:05 Chloride IVPB 100 mls Q24HR JANES Administration Levothyroxine Sodium 150 mcg 12/27/19 06:00 12/28/19 06:14 Synthroid PO 150 mcg 0600 JANES Administration Pantoprazole Sodium 40 mg 12/27/19 09:00 12/28/19 07:53 Protonix PO 40 mg DAILY JANES Administration Rosuvastatin Calcium 10 mg 12/27/19 21:00 12/27/19 21:38 Crestor PO 10 mg HS JANES Administration - Exam General Appearance: NAD, awake alert Heart: RRR, no murmur, no gallops, no rubs, normal peripheral pulses Respiratory: CTAB, no wheezes, no rales, no ronchi, normal chest expansion, no tachypnea, normal percussion Gastrointestinal: soft, non-tender, non-distended, normal bowel sounds, no palpable masses, no hepatomegaly, no splenomegaly, no bruit Extremities: no cyanosis, no clubbing, no edema Musculoskeletal: normal tone Psychiatric: normal affect, normal behavior Hosp A/P (1) Acute kidney failure Status: Acute (2) Diarrhea Code(s): R19.7 - DIARRHEA, UNSPECIFIED Status: Acute (3) Hypocalcemia Code(s): E83.51 - HYPOCALCEMIA Status: Acute (4) Hypomagnesemia Code(s): E83.42 - HYPOMAGNESEMIA Status: Acute (5) Acquired hypothyroidism Code(s): E03.9 - HYPOTHYROIDISM, UNSPECIFIED Status: Acute (6) Sepsis Code(s): A41.9 - SEPSIS, UNSPECIFIED ORGANISM Status: Acute (7) Hypotension Status: Acute (8) CAD (coronary artery disease) Code(s): I25.10 - ATHSCL HEART DISEASE OF [place] CORONARY ARTERY W/O ANG PCTRS Status: Acute (9) Dementia Code(s): F03.90 - UNSPECIFIED DEMENTIA WITHOUT BEHAVIORAL DISTURBANCE Status: Acute - Plan Sepsis/Diarrhea: Continue thyroid meds. Continue cefepime and monitor cultures. Feels better with hydration. JUAN M: Continue IVF. Monitor renal function. Secondary to sepsis. Hypomag, Hypocal: Replace Mg and Ca. Initially reported to have some CHF, but prior echo reviewed and appears to be normal.
--- NOTE | 2019-12-28 13:38 | PDOC.HOSPP ---
- Subjective Encounter Date: 12/28/19 Subjective: Feels well. No complaints. No diarrhea. - Objective Vital Signs & Weight: Vital Signs (12 hours) Temp Pulse Resp BP Pulse Ox 12/28/19 08:00 96 12/28/19 06:15 97.3 F L 45 L 16 145/71 H 94 L Weight Weight 127 lb 12.8 oz I&O: 12/27/19 12/28/19 12/29/19 06:59 06:59 06:59 Intake Total 3600 Balance 3600 Result Diagrams: 12/28/19 08:28 12/28/19 07:01 Hospitalist ROS - Medication Medications: Active Medications Generic Name Dose Route Start Last Admin Trade Name Freq PRN Reason Stop Dose Admin Aspirin 81 mg 12/27/19 09:00 12/28/19 07:53 Aspirin Chewable PO 81 mg DAILY JANES Administration Citalopram Hydrobromide 20 mg 12/27/19 09:00 12/28/19 07:53 Celexa PO 20 mg DAILY JANES Administration Doxazosin Mesylate 1 mg 12/27/19 09:00 12/28/19 07:53 Cardura PO 1 mg DAILY JANES Administration Heparin Sodium (Porcine) 5,000 units 12/27/19 09:00 12/28/19 11:09 Heparin SC Not Given TID JANES Sodium Chloride 1,000 mls @ 100 mls/hr 12/26/19 23:56 12/28/19 02:45 Normal Saline 0.9% IV 1,000 mls .Q10H JANES Administration Cefepime HCl 1 gm/ Sodium 100 mls @ 200 mls/hr 12/27/19 18:00 12/27/19 17:05 Chloride IVPB 100 mls Q24HR JANES Administration Levothyroxine Sodium 150 mcg 12/27/19 06:00 12/28/19 06:14 Synthroid PO 150 mcg 0600 JANES Administration Pantoprazole Sodium 40 mg 12/27/19 09:00 12/28/19 07:53 Protonix PO 40 mg DAILY JANES Administration Rosuvastatin Calcium 10 mg 12/27/19 21:00 12/27/19 21:38 Crestor PO 10 mg HS JANES Administration - Exam General Appearance: NAD, awake alert Heart: RRR, no murmur, no gallops, no rubs, normal peripheral pulses Respiratory: CTAB, no wheezes, no rales, no ronchi, normal chest expansion, no tachypnea, normal percussion Gastrointestinal: soft, non-tender, non-distended, normal bowel sounds, no palpable masses, no hepatomegaly, no splenomegaly, no bruit Extremities: no cyanosis, no clubbing, no edema Musculoskeletal: normal tone Psychiatric: normal affect Hosp A/P (1) Acute kidney failure Status: Acute (2) Diarrhea Code(s): R19.7 - DIARRHEA, UNSPECIFIED Status: Acute (3) Hypocalcemia Code(s): E83.51 - HYPOCALCEMIA Status: Acute (4) Hypomagnesemia Code(s): E83.42 - HYPOMAGNESEMIA Status: Acute (5) Acquired hypothyroidism Code(s): E03.9 - HYPOTHYROIDISM, UNSPECIFIED Status: Acute (6) Sepsis Code(s): A41.9 - SEPSIS, UNSPECIFIED ORGANISM Status: Acute (7) Hypotension Status: Acute (8) CAD (coronary artery disease) Code(s): I25.10 - ATHSCL HEART DISEASE OF [place] CORONARY ARTERY W/O ANG PCTRS Status: Acute (9) Dementia Code(s): F03.90 - UNSPECIFIED DEMENTIA WITHOUT BEHAVIORAL DISTURBANCE Status: Acute (10) Bradycardia Code(s): R00.1 - BRADYCARDIA, UNSPECIFIED Status: Acute - Plan Sepsis/Diarrhea: Continue cefepime and monitor cultures. Everything negative so far. Suspect this was more of a dehydration picture than sepsis. Feels better with hydration. JUAN M: Continue IVF. Monitor renal function. Secondary to sepsis and/or dehydration. Appears to be resolved and at baseline. Hypomag, Hypocal: Replace Mg and Ca. Numbers are better today. Hypothyroidism: Appears to be under-replaced. Continue thyroid meds. Will need to be reassessed as OP. Bradycardia: Has had relative bradycardia for a long while. BP is maintained. She is asymptomatic. Exam reveals a rate slightly higher than the recorded numbers. Treat the hypothyroidism and monitor. Covid rule out: Very low likelihood at this point. Results still pending. Initially reported to have some CHF, but prior echo reviewed and appears to be normal.
[2019-12-28] MEDS: Cefepime 1 GM in Sodium Chloride 0.9% 100 ML IVPB SCH (17:51)
[2019-12-28] MEDS: Rosuvastatin 10 MG TAB PO SCH (20:27)
[2019-12-29] MEDS: Sodium Chloride 0.9% 1,000 ML IV SCH ×2 (01:50→08:34)
[2019-12-29] MEDS: Levothyroxine 150 MCG TAB PO SCH (04:30)
[2019-12-29] MEDS ORDERED: hydrALAZINE 20 MG/ML VIAL SLOW IVP SCH (05:00)
[2019-12-29] MEDS: Doxazosin Mesylate 1 MG TAB PO SCH (08:31)
[2019-12-29] MEDS: Heparin 5,000 UNITS/ML VIAL SC SCH ×2 (08:32→08:57)
[2019-12-29] MEDS: Aspirin Chewable 81 MG TAB PO SCH (08:32)
[2019-12-29] MEDS: Citalopram 20 MG TAB PO SCH (08:32)
[2019-12-29] MEDS ORDERED: Lisinopril 20 MG TAB PO SCH ×2 (10:00→21:00)
[2019-12-29] MEDS ORDERED: Amlodipine 5 MG TAB PO SCH (10:00)
[2019-12-29 10:07] VITALS: TEMP 97.9
[2019-12-29 11:58] LABS: Anion Gap 12 mmol/L (10-20); BUN (Urea Nitrogen) 14 mg/dL (9.8-20.1); Calc. Creatinine Clearance 57 mL/min (70-130); Calcium 8.4 mg/dL (7.8-10.44); Carbon Dioxide 16 mmol/L (23-31); Chloride 115 mmol/L (98-107); Estimated GFR-MDRD 73; Glucose 68 mg/dL (83-110); Potassium 4.3 mmol/L (3.5-5.1); Sodium 139 mmol/L (136-145)
[2019-12-29 12:57] VITALS: BP 188/71
--- NOTE | 2019-12-29 19:11 | DIS ---
DATE OF ADMISSION: 12/26/2019 DATE OF DISCHARGE: 12/29/2019 DISCHARGE DIAGNOSES: 1. Acute kidney injury. 2. Dehydration. 3. Diarrhea. 4. Infectious gastroenteritis. 5. Hypocalcemia. 6. Hypomagnesemia. 7. Hypothyroidism. 8. Sepsis. 9. Hypotension. 10. Coronary artery disease. 11. Dementia. 12. Bradycardia. 13. Hypertension. HISTORY: This patient is a 79-year-old female with a history of hypothyroidism and dementia, who presented to the hospital with diarrheal illness and fever, was noted to be hypotensive when she presented initially to her PCP's office and reported 3 days of fever and diarrhea. In the emergency department, the patient received fluid resuscitation, and her blood pressure improved. It was noted that her creatinine had increased to 3.11, well above her normal baseline of 0.77 noted 2 years prior. Troponin was negative. HOSPITAL COURSE: The patient was admitted with sepsis and hypotension, felt to be related to dehydration and gastroenteritis with diarrhea. She was started on antibiotics and had COVID testing obtained. She was appropriately isolated with rehydration, and the patient's symptoms promptly resolved. She had no further diarrhea. She had no further fever. She denied any abdominal pain, shortness of breath, or cough. Her renal function improved daily with hydration back to a normal baseline. Her COVID test came back negative. She was able to get out and walk the halls quite well with a rolling walker and was felt to be stable for discharge to home. Throughout her hospital course, however, the patient was noted to be mildly bradycardic. She was completely asymptomatic with this, and in reviewing her records, she had previously been somewhat bradycardic as well, so this did not appear to be a significant change for her. It was also noted that the patient on physical exam generally appeared to have a faster heart rate than was being noted by her vital sign machine. Also of note, the patient's initial CARLOS inhibitors were discontinued because of her renal function, and her blood pressure did go back up, and at that time, her medications were resumed. Her blood pressure improved. PHYSICAL EXAMINATION: VITAL SIGNS: On the day of discharge, temperature is 97.9, pulse 47 and 53, O2 saturations 96% on room air, BP 134/67. GENERAL APPEARANCE: Age-appropriate female, in no distress, very pleasant, cooperative. HEART: Regular without murmurs. LUNGS: Clear bilaterally with no wheezes or rales. ABDOMEN: Soft, nontender, and nondistended. Positive bowel sounds. No masses. No organomegaly. EXTREMITIES: No cyanosis, clubbing, or edema. DISPOSITION: The patient is discharged to home in stable condition. ACTIVITY: As tolerated. DIET: She will be on a heart healthy diet. DISCHARGE MEDICATIONS: She will be on, 1. Rosuvastatin 10 mg at bedtime. 2. Doxazosin 1 mg at bedtime. 3. Citalopram 20 mg daily. 4. Aspirin 81 mg daily. 5. Levothyroxine 150 mcg p.o. daily. 6. Hydrochlorothiazide 25 mg daily. 7. Nexium 40 mg daily. 8. Pentoxifylline 400 mg t.i.d. 9. Lisinopril 40 mg b.i.d. FOLLOWUP: She will follow up with Dr. Yates in 7 days. She can return to the hospital at anytime should she have the need to do so. TIME SPENT: Total time in discharge activities was greater than 30 minutes. Job ID: [id number]
[2019-12-30] MEDS ORDERED: Amlodipine 5 MG TAB PO SCH (09:00)
--- NOTE | 2020-01-01 05:49 | PQF ---
BON PELAEZ DAVID R MD [id number] CLINICAL DOCUMENTATION CLARIFICATION FORM: POST DISCHARGE Addendum to original discharge summary date: ____ Late entry note date: __ DATE:01/01/2020 ATTN: Delfin Wood Please exercise your independent, professional judgment in responding to the clarification form. Clinical indicators are provided on the bottom of this form for your review Please check appropriate box(s): [ x ] Hypovolemic Shock [ ] Septic Shock [ ] Other Shock, please specify: [ ] Shock Unspecified [ ] Other diagnosis [ ] Unable to determine In addition, please specify: Present on Admission (POA): [ x ] Yes [ ] No [ ] Unable to determine For continuity of documentation, please document condition throughout progress notes and discharge summary. Thank You. CLINICAL INDICATORS - SIGNS / SYMPTOMS / LABS Laboratory 12/26 WBC 3.8, Plt count 91, Neutrophils 62.7, Potassium 2.8, Glucose 55, Creatinine 1.39, BUN 28 Vital signs 12/26 BP 107/52, Pulse 51, Resp 18, Remp 97.9 ED Notes p4 12/25 Confused and disoriented H&P p1 12/25 Dr Ellison Son noted that she had diarrhea x3 and fever to 102 H&P p1 12/25 Dr Ellison at office, found to have systolic blood pressure in 70s H&P p2 12/25 Dr Ellison Occasionally runs a little bradycardic H&P p3 12/25 Dr Ellison sepsis with hypotension and reported to 102 H&P p3 12/25 Dr Ellison Diarrhea with fever, likely gastrointestinal infection Hospitalist PN p4 12/27 JUAN M secondary to Sepsis and/or Dehydration Hospitalist PN p4 12/27 Suspect was more of dehydration picture than sepsis RISK FACTORS H&P p1 12/25 79-year-old Female H&P p1 4 Acute kidney failure H&P p1 12/25 HTN H&P p1 12/25 CHF H&P p1 12/25 hx of breast cancer H&P p1 12/25 Dementia H&P p1 12/25 CAD H&P p1 12/25 Hypothyroidism H&P p2 12/25 Former smoker TREATMENTS: NOV 20 IVF NS 1L NOV 20 IVF LR 1L NOV 20 IV Cefepime 1gm ED notes p7 IVF resuscitation (This form is maintained as a part of the permanent medical record) 2014 [employer]. All Rights Reserved [email or web address]
== END 2019-12-29 18:00 | disposition home or self-care (01) | DRG 871 ==
LOC: ERS 20:01 → T4-A 21:54
PROVIDERS: ADMIT Emergency Medicine; ATTEND Emergency Medicine
PROC: 8E0ZXY6 Isolation (ICD-10-PCS; principal; 2019-12-26)
DX: A41.9 Sepsis, unspecified organism (principal); R57.1 Hypovolemic shock; N17.9 Acute kidney failure, unspecified; A09 Infectious gastroenteritis and colitis, unspecified; Z20.828 Contact with and (suspected) exposure to other viral communicable diseases; R65.20 Severe sepsis without septic shock; I25.10 Atherosclerotic heart disease of native coronary artery without angina pectoris; E83.51 Hypocalcemia; E83.42 Hypomagnesemia; E03.9 Hypothyroidism, unspecified; F03.90 Unspecified dementia, unspecified severity, without behavioral disturbance, psychotic disturbance, mood disturbance, and anxiety; E78.5 Hyperlipidemia, unspecified; I50.9 Heart failure, unspecified; H35.30 Unspecified macular degeneration; I11.0 Hypertensive heart disease with heart failure; R00.1 Bradycardia, unspecified; Z85.3 Personal history of malignant neoplasm of breast; Z90.49 Acquired absence of other specified parts of digestive tract; Z90.710 Acquired absence of both cervix and uterus; Z87.891 Personal history of nicotine dependence; Z88.0 Allergy status to penicillin; Z88.8 Allergy status to other drugs, medicaments and biological substances; Z79.899 Other long term (current) drug therapy; Z79.82 Long term (current) use of aspirin; Z79.890 Hormone replacement therapy; Z95.1 Presence of aortocoronary bypass graft
CPT/HCPCS: 36415; 36416; 80048; 80053; 83735; 84439; 84443; 84481; 85025; 94760; 96360; 96361; J0360; J0692; J1644; J3475; J3490

== ENCOUNTER 2022-03-17 12:18 | Emergency (ER) | payer MEDICARE, OTHER | END 2022-03-17 16:40 | disposition home or self-care (01) | LOC: ERS 12:18 | DX: M79.662 Pain in left lower leg (principal); E78.5 Hyperlipidemia, unspecified; I11.0 Hypertensive heart disease with heart failure; I50.9 Heart failure, unspecified; E03.9 Hypothyroidism, unspecified; Z87.891 Personal history of nicotine dependence; Z79.899 Other long term (current) drug therapy; Z79.82 Long term (current) use of aspirin ==